=== PATIENT | female | born 1935 | race African-American/Black ===

== ENCOUNTER 2020-07-29 16:40 | Inpatient (IN) | payer MEDICARE, OTHER ==
[~2020-07-29] VITALS: Ht 162.6 cm; Wt 106.3 kg
[2020-07-29 21:55] LABS: HEMATOCRIT. 36.5 % (36.0-48.0); HEMOGLOBIN. 12.4 g/dL (12.0-16.0); MEAN CORPUSCULAR HEMOGLOBIN 33.4 pg (28.0-32.0); MEAN CORPUSCULAR VOLUME 98.1 fL (81.0-99.0); MEAN PLATELET VOLUME 7.6 fl (7.4-10.4); PLATELET 214 x1000/uL (130-400); RED BLOOD CELL COUNT 3.72 mill/uL (4.2-5.4); RED CELL DISTRIBUTION WIDTH 13.6 % (11.6-14.6)
[2020-07-29 22:00] LABS: CHLORIDE 108 mEq/L (98-107)
[2020-07-29] MEDS ORDERED: FUROSEMIDE 20MG/2ML VIAL IVP ONE (22:30)
[2020-07-29 22:51] LABS: PLATELET ESTIMATE NORMAL
[2020-07-29 23:48] VITALS: BP 146/71
[2020-07-30] VITALS: BP 146/71
[2020-07-30] MEDS ORDERED: ACETAMINOPHEN 325MG TABLET PO PRN (01:15)
[2020-07-30] MEDS ORDERED: FURO40TA5 PO (01:56)
[2020-07-30] MEDS ORDERED: POTA10CA42 PO (01:57)
[2020-07-30 04:00] VITALS: BP 156/72
[2020-07-30 05:02] LABS: CHLORIDE 107 mEq/L (98-107)
[2020-07-30 05:09] LABS: HDL CHOLESTEROL 69 mg/dL (40-59)
[2020-07-30 05:10] LABS: LDL CHOLESTEROL 137 mg/dL (5-100)
[2020-07-30 06:35] LABS: HEMATOCRIT. 36.8 % (36.0-48.0); HEMOGLOBIN. 12.2 g/dL (12.0-16.0); MEAN CORPUSCULAR HEMOGLOBIN 32.6 pg (28.0-32.0); MEAN CORPUSCULAR VOLUME 98.1 fL (81.0-99.0); PLATELET 214 x1000/uL (130-400); RED BLOOD CELL COUNT 3.75 mill/uL (4.2-5.4); RED CELL DISTRIBUTION WIDTH 13.6 % (11.6-14.6)
[2020-07-30 08:00] VITALS: BP 136/61
[2020-07-30] MEDS: METOPROLOL TARTRATE 50MG TABLET PO SCH ×2 (09:18→20:16)
[2020-07-30] MEDS: BENAZEPRIL 10MG TABLET PO SCH ×2 (09:19→20:16)
[2020-07-30] MEDS: FUROSEMIDE 40MG/4ML VIAL IVP SCH (09:19)
[2020-07-30] MEDS: ASPIRIN 81MG TABLET PO SCH (09:19)
[2020-07-30] MEDS ORDERED: VANCOMYCIN 1 G PREMIX 200 ML IV SCH (10:00)
[2020-07-30] MEDS ORDERED: IPRATROPIUM/ALBUTEROL 0.5-3(2.5)MG/3ML NEB HHN PRN (11:00)
[2020-07-30] MEDS ORDERED: CLONIDINE 0.1MG TABLET PO PRN (11:00)
[2020-07-30] MEDS ORDERED: DIPHENHYDRAMINE 50MG/ML VIAL IV PRN (11:00)
[2020-07-30] MEDS ORDERED: HYDROCODONE/ACETAMINOPHEN 5/325MG TABLET PO PRN (11:00)
[2020-07-30] MEDS ORDERED: BISACODYL 10MG SUPP PR PRN (11:00)
[2020-07-30] MEDS ORDERED: LORAZEPAM 2MG/ML CPJ IV PRN (11:00)
[2020-07-30 12:00] VITALS: BP 126/63
[2020-07-30 12:13] LABS: BG BASE EXCESS 3.7 mmol/L (-2.0-2.0); BG CARBOXYHEMOGLOBIN 0.2 % (0.5-1.5); BG DEOXYHEMOGLOBIN 2.9 % (0.0-5.0); BG FRACTION INSPIRED OXYGEN 21; BG HCO3 ACT 28.4 mmol/L (22.0-26.0); BG METHEMOGLOBIN 0.1 % (0.0-1.5); BG OXYGEN SATURATION 97.1 % (92.0-98.5); BG OXYHEMOGLOBIN 96.8 % (94.0-97.0); BG PCO2 43.4 mmHg (35.0-45.0); BG PH 7.434 (7.350-7.450); BG PO2 88.3 mmHg (75.0-100.0); BG SAMPLE SITE LEFT RADIAL; BG TOTAL HEMOGLOBIN 12.5 g/dL (12.0-18.0); BG VENT MODE ROOM AIR
[2020-07-30 13:00] LABS: T4 FREE 1.32 ng/dL (0.76-1.46)
[2020-07-30] MEDS ORDERED: VANCOMYCIN 1500MG in DEXTROSE 5% WATER 250ML IV NR (15:00)
[2020-07-30 16:00] VITALS: BP 131/59
[2020-07-30] MEDS: MICONAZOLE NITRATE 2% OINT 71GM TOP SCH (17:13)
[2020-07-30 18:26] LABS: PLATELET ESTIMATE NORMAL
[2020-07-30 20:00] VITALS: BP 161/62
[2020-07-30] MEDS: ATORVASTATIN CALCIUM 10MG TABLET PO SCH (20:16)
[2020-07-30] MEDS ORDERED: LACTULOSE 20G/30ML UDC PO PRN (21:00)
[2020-07-31] VITALS: BP 149/48
[2020-07-31 04:00] VITALS: BP 91/40
[2020-07-31 08:00] VITALS: BP 120/49
[2020-07-31] MEDS: MICONAZOLE NITRATE 2% OINT 71GM TOP SCH ×3 (09:00→16:24)
[2020-07-31] MEDS: BENAZEPRIL 10MG TABLET PO SCH ×2 (09:13→20:31)
[2020-07-31] MEDS: METOPROLOL TARTRATE 50MG TABLET PO SCH ×2 (09:13→20:31)
[2020-07-31] MEDS: ASPIRIN 81MG TABLET PO SCH (09:14)
[2020-07-31] MEDS: FUROSEMIDE 40MG/4ML VIAL IVP SCH (09:14)
[2020-07-31] MEDS ORDERED: VANCOMYCIN 1 G PREMIX 200 ML IV SCH (10:00)
[2020-07-31 12:00] VITALS: BP 113/56
[2020-07-31] MEDS ORDERED: LEVOFLOXACIN 500MG PREMIX 100 ML IV NR (13:00)
[2020-07-31 16:00] VITALS: BP 120/73
[2020-07-31 20:00] VITALS: BP 110/46
[2020-07-31] MEDS: ATORVASTATIN CALCIUM 10MG TABLET PO SCH (20:31)
[2020-08-01] VITALS: BP 144/54
[2020-08-01 04:00] VITALS: BP 119/48
[2020-08-01 08:00] VITALS: BP 129/57
[2020-08-01] MEDS: FUROSEMIDE 40MG/4ML VIAL IVP SCH (10:18)
[2020-08-01] MEDS: ASPIRIN 81MG TABLET PO SCH (10:18)
[2020-08-01] MEDS: METOPROLOL TARTRATE 50MG TABLET PO SCH (10:19)
[2020-08-01] MEDS: BENAZEPRIL 10MG TABLET PO SCH (10:19)
[2020-08-01] MEDS: MICONAZOLE NITRATE 2% OINT 71GM TOP SCH ×2 (10:20→12:34)
[2020-08-01 12:00] VITALS: BP 119/53
[2020-08-01] MEDS ORDERED: LEVOFLOXACIN 250MG PREMIX 50 ML IV SCH (12:00)
[2020-08-01 12:38] VITALS: BP 119/53
[2020-08-02] MEDS ORDERED: LEVOFLOXACIN 250MG TABLET PO SCH (11:00)
== END 2020-08-01 15:10 | DRG 292 ==
LOC: ER 16:40 → 5WST 22:23 → ENRESERV 22:54
PROVIDERS: ADMIT Internal Medicine; ATTEND Internal Medicine
DX: I11.0 Hypertensive heart disease with heart failure (principal); L03.115 Cellulitis of right lower limb; L97.329 Non-pressure chronic ulcer of left ankle with unspecified severity; L97.319 Non-pressure chronic ulcer of right ankle with unspecified severity; Z68.41 Body mass index [BMI] 40.0-44.9, adult; L03.116 Cellulitis of left lower limb; I50.43 Acute on chronic combined systolic (congestive) and diastolic (congestive) heart failure; E88.09 Other disorders of plasma-protein metabolism, not elsewhere classified; I89.0 Lymphedema, not elsewhere classified; L60.3 Nail dystrophy; B35.3 Tinea pedis; E66.01 Morbid (severe) obesity due to excess calories; E04.2 Nontoxic multinodular goiter; E05.90 Thyrotoxicosis, unspecified without thyrotoxic crisis or storm; E78.5 Hyperlipidemia, unspecified; E07.89 Other specified disorders of thyroid; Z20.828 Contact with and (suspected) exposure to other viral communicable diseases; H54.7 Unspecified visual loss; Z79.899 Other long term (current) drug therapy; Z88.0 Allergy status to penicillin; W19.XXXA Unspecified fall, initial encounter
CPT/HCPCS: 36415; 36600; 71045; 72170; 76536; 80053; 80061; 82375; 82805; 83735; 83880; 84439; 84443; 84481; 84484; 85025; 87426; 93005; 93306; 93970; 97162; 99285; C1893; J1940; J1956; J3370; J7060

== ENCOUNTER 2020-12-09 16:04 | Inpatient (IN) | payer MEDICARE ==
[~2020-12-09] VITALS: Ht 175.3 cm; Wt 80.7 kg
[~2020-12-09 16:04] MED LIST: APIX5TAB MT; POTA10CA42 PO
[2020-12-09] MEDS ORDERED: SODIUM CHLORIDE 0.9% 1,000 ML IV ONE (16:45)
[2020-12-09 17:01] LABS: BASOPHILS % 0.9 % (0.0-2.0); EOSINOPHILS % 1.3 % (0.0-5.0); HEMATOCRIT. 34.8 % (36.0-48.0); HEMOGLOBIN. 11.6 g/dL (12.0-16.0); LYMPHOCYTES % 20.8 % (20.0-50.0); MEAN CORPUSCULAR HEMOGLOBIN 31.7 pg (28.0-32.0); MEAN CORPUSCULAR VOLUME 95.1 fL (81.0-99.0); MEAN PLATELET VOLUME 7.5 fl (7.4-10.4); MONOCYTES % 12.9 % (2.0-8.0); NEUTROPHILS % 64.1 % (40.0-76.0); PLATELET 384 x1000/uL (130-400); RED BLOOD CELL COUNT 3.66 mill/uL (4.2-5.4); RED CELL DISTRIBUTION WIDTH 16.5 % (11.6-14.6)
[2020-12-09 17:18] LABS: CHLORIDE 107 mEq/L (98-107)
[2020-12-09 17:56] LABS: INR 1.5; PARTIAL THROMBOPLASTIN TIME 27.3 sec (23.4-31.0); PROTHROMBIN TIME 15.3 sec (9.6-11.0)
[2020-12-09] MEDS ORDERED: ASPIRIN 81MG TABLET PO ONE (18:45)
[2020-12-09 20:37] LABS: CLARITY URINE CLEAR (CLEAR); COLOR URINE YELLOW (YELLOW); KETONES URINE 1+ (NEGATIVE); LEUKOCYTE ESTERASE URINE 2+ (NEGATIVE); NITRITE URINE POSITIVE (NEGATIVE); OCCULT BLOOD URINE NEGATIVE (NEGATIVE); PROTEIN URINE NEGATIVE (NEGATIVE); SPECIFIC GRAVITY URINE 1.017 (1.005-1.030)
[2020-12-09] MEDS ORDERED: LEVOFLOXACIN 750MG PREMIX 150 ML IV ONE (21:45)
[2020-12-10] VITALS (7 sets, daily range): BP systolic 100–125; BP diastolic 51–69
[2020-12-10] MEDS ORDERED: ACETAMINOPHEN 325MG TABLET PO PRN (00:30)
[2020-12-10] MEDS ORDERED: CEFTRIAXONE 1 G PREMIX 50 ML IV SCH (00:30)
[2020-12-10] MEDS ORDERED: DEXT 5%/0.45% NACL 1000ML 1,000 ML IV ONE (01:00)
[2020-12-10] MEDS: PANTOPRAZOLE 40MG DR TABLET PO SCH (08:35)
[2020-12-10] MEDS ORDERED: ASPIRIN 81MG TABLET PO SCH (09:00)
[2020-12-10] MEDS ORDERED: ENOXAPARIN 40MG/0.4ML SYR SUBCUT SCH (09:00)
[2020-12-10 09:08] LABS: BASOPHILS % 0.4 % (0.0-2.0); EOSINOPHILS % 0.7 % (0.0-5.0); HEMATOCRIT. 29.1 % (36.0-48.0); HEMOGLOBIN. 9.9 g/dL (12.0-16.0); LYMPHOCYTES % 17.9 % (20.0-50.0); MEAN CORPUSCULAR HEMOGLOBIN 32.5 pg (28.0-32.0); MEAN CORPUSCULAR VOLUME 95.5 fL (81.0-99.0); MEAN PLATELET VOLUME 7.5 fl (7.4-10.4); MONOCYTES % 13.8 % (2.0-8.0); NEUTROPHILS % 67.2 % (40.0-76.0); PLATELET 353 x1000/uL (130-400); RED BLOOD CELL COUNT 3.05 mill/uL (4.2-5.4); RED CELL DISTRIBUTION WIDTH 16.6 % (11.6-14.6)
[2020-12-10 09:13] LABS: CHLORIDE 107 mEq/L (98-107)
[2020-12-10 09:19] LABS: LDL CHOLESTEROL 121 mg/dL (5-100)
[2020-12-10 09:21] LABS: HDL CHOLESTEROL 30 mg/dL (40-59)
[2020-12-10] MEDS ORDERED: LORAZEPAM 2MG/ML CPJ IV PRN (12:45)
[2020-12-10] MEDS ORDERED: BISACODYL 10MG SUPP PR PRN (12:45)
[2020-12-10] MEDS ORDERED: IPRATROPIUM/ALBUTEROL 0.5-3(2.5)MG/3ML NEB HHN PRN (12:45)
[2020-12-10] MEDS ORDERED: HYDROCODONE/ACETAMINOPHEN 5/325MG TABLET PO PRN (12:45)
[2020-12-10] MEDS ORDERED: CLONIDINE 0.1MG TABLET PO PRN (12:45)
[2020-12-10] MEDS: APIXABAN 5 MG TABLET PO SCH (18:07)
[2020-12-10] MEDS ORDERED: POTASSIUM CHLORIDE INJ 40 MEQ in DEXT 5% WATER 250 ML IV ONE (21:30)
[2020-12-10] MEDS ORDERED: LEVOFLOXACIN 500MG PREMIX 100 ML IV SCH (22:00)
[2020-12-11] VITALS: BP 113/77
[2020-12-11 04:00] VITALS: BP 112/66
[2020-12-11] MEDS: PANTOPRAZOLE 40MG DR TABLET PO SCH (06:37)
[2020-12-11 08:00] VITALS: BP 99/54
[2020-12-11] MEDS: APIXABAN 5 MG TABLET PO SCH (10:16)
[2020-12-11 12:00] VITALS: BP 99/58
[2020-12-11 16:00] VITALS: BP 100/53
[2020-12-11 16:01] VITALS: BP 111/61
== END 2020-12-11 17:45 | DRG 71 ==
LOC: ER 16:04 → EDBEDREQTM 21:47 → EDBEDREQ 21:47 → ENRESERV 22:19 → 8WST 23:05
PROVIDERS: ADMIT Internal Medicine; ATTEND Internal Medicine
DX: G93.40 Encephalopathy, unspecified (principal); N39.0 Urinary tract infection, site not specified; E44.1 Mild protein-calorie malnutrition; F03.90 Unspecified dementia, unspecified severity, without behavioral disturbance, psychotic disturbance, mood disturbance, and anxiety; E87.6 Hypokalemia; E66.9 Obesity, unspecified; D64.9 Anemia, unspecified; Z20.822 Contact with and (suspected) exposure to COVID-19; B96.20 Unspecified Escherichia coli [E. coli] as the cause of diseases classified elsewhere; I10 Essential (primary) hypertension; Z86.718 Personal history of other venous thrombosis and embolism; Z68.26 Body mass index [BMI] 26.0-26.9, adult; Z88.0 Allergy status to penicillin; Z79.899 Other long term (current) drug therapy; S31.000A Unspecified open wound of lower back and pelvis without penetration into retroperitoneum, initial encounter; R53.1 Weakness
CPT/HCPCS: 36415; 71045; 80048; 80053; 80061; 81003; 83880; 84484; 85025; 87077; 87186; 87426; 93005; 97161; 99285; J1650; J1956; J3480; J7030; J7060